=== PATIENT | female | born 2000 | race Caucasian/White ===

== ENCOUNTER 2025-03-08 10:51 | Outpatient (CLI) | payer OTHER ==
--- NOTE | 2025-03-08 12:45 | RADIOLOGY REPORT ---
INDICATION: ARTHRITIS COMPARISON: None TECHNIQUE: 6 views of the lumbar spine were obtained. FINDINGS: The lumbar vertebral alignment is normal. Moderate degenerative changes at L4 L5 through L5 S1 causing severe neural foraminal and spinal sesar l stenosis. No acute fracture, vertebral compression deformity or aggressive osseous lesions. The paravertebral soft tissues are grossly unremarkable. IMPRESSION: No acute fracture or subluxation.
== END 2025-03-08 23:59 | disposition home or self-care (01) ==
LOC: RAD 10:51
PROVIDERS: ATTEND Chiropractor
DX: M48.07 Spinal stenosis, lumbosacral region (principal); M13.80 Other specified arthritis, unspecified site
CPT/HCPCS: 72110